=== PATIENT | male | born 1950 | race African-American/Black ===

== ENCOUNTER → 2016-12-02 | Outpatient (CLI) | payer MEDICARE, OTHER ==
[~2016-12-02] MED LIST: AMOX500T2 PO; CODE118S2 PO; HYDR-3933 PO
== END | disposition home or self-care (01) ==
LOC: CT 15:31
PROVIDERS: ATTEND Internal Medicine Nephrology
DX: S72.001D Fracture of unspecified part of neck of right femur, subsequent encounter for closed fracture with routine healing (principal); M16.11 Unilateral primary osteoarthritis, right hip; N40.0 Benign prostatic hyperplasia without lower urinary tract symptoms; M87.850 Other osteonecrosis, pelvis; W19.XXXD Unspecified fall, subsequent encounter; X58.XXXD Exposure to other specified factors, subsequent encounter
CPT/HCPCS: 72195; 73700

== ENCOUNTER → 2017-01-12 | Day surgery (SDC) | payer MEDICARE, OTHER | END | disposition home or self-care (01) | LOC: RAD 12:38 | PROVIDERS: ATTEND Internal Medicine Nephrology | DX: J44.9 Chronic obstructive pulmonary disease, unspecified (principal) | CPT/HCPCS: 71020; 93005 ==

== ENCOUNTER 2017-04-10 12:29 | Emergency (ER) | payer MEDICARE, MEDICAID ==
[~2017-04-10] VITALS: Ht 172.7 cm; Wt 77.0 kg
[~2017-04-10 12:29] MED LIST changes: -HYDR-3933 PO; +HYDR-4009 PO
[2017-04-10] MEDS ORDERED: BACL-141 PO (12:41)
[2017-04-10] MEDS ORDERED: KETOROLAC 60MG/2ML VIAL IM ONE (21:45)
[2017-04-11 01:00] VITALS: BP 125/70
== END 2017-04-11 01:00 | disposition home or self-care (01) ==
LOC: ER 12:45
DX: S29.012A Strain of muscle and tendon of back wall of thorax, initial encounter (principal); S46.912A Strain of unspecified muscle, fascia and tendon at shoulder and upper arm level, left arm, initial encounter; V49.49XA Driver injured in collision with other motor vehicles in traffic accident, initial encounter; Y93.89 Activity, other specified; Y92.410 Unspecified street and highway as the place of occurrence of the external cause; Z79.899 Other long term (current) drug therapy; Z96.649 Presence of unspecified artificial hip joint
CPT/HCPCS: 72040; 96372; 99283; J1885